=== PATIENT | male | born 2005 | race Caucasian/White ===

== ENCOUNTER → 2023-11-29 11:19 | Outpatient (REF) | payer BC, SELFPAY | LOC: MRI 3T 11:19 | PROVIDERS: ATTENDING PHYSICIAN Orthopaedic Surgery; FAMILY PHYSICIAN Emergency Medicine | DX: M24.812 Other specific joint derangements of left shoulder, not elsewhere classified (principal); M25.312 Other instability, left shoulder | CPT/HCPCS: 73221 ==

== ENCOUNTER 2025-07-08 17:13 | Day surgery (SDC) | payer SELFPAY ==
[2025-07-08] VITALS (13 sets, daily range): BP systolic 108–147; BP diastolic 68–86; BMI 30.7
[2025-07-08 11:47] LABS: Hematocrit 44.8 % (39.0-52.0); Hemoglobin 15.4 g/dL (13.0-18.0); Mean Corp Hgb Conc. 34.4 g/dL (33.0-37.0); Mean Corpuscular Volume 82.4 fL (80.0-94.0); Nucleated Red Blood Cells % 0 % (-); Platelet Count 214 10^3/uL (130-400); Red Cell Dist. Width 12.3 % (11.5-14.5)
--- NOTE | 2025-07-08 11:50 | ED.GENMED ---
History of Present Illness
General
Chief Complaint: Abdominal Pain
Time Seen by Provider: 07/08/25 11:02
History of Present Illness
History of Present Illness:
see MDM
Phy Exam
Physical Exam
Physical Exam:
see MDM
Course
Orders/Labs/Results
Orders:
Orders
07/08/25 11:30
CT Abd/Pel (IV only)-DH only Urgent
Comment:
Reason For Exam: RLQ pain
0.9% Sodium Chloride 1000 ml [Nss] 1,000 ml IV BOLUS
Ketorolac [Toradol] 30 mg IV NOW STA
07/08/25 11:39
Complete Blood Count/With Diff Urgent
Comprehensive Metabolic Panel Urgent
07/08/25 11:54
Urinalysis Reflex To Culture Urgent
Date Specimen was Collected: 07/08/25
Time Specimen was Collected: 11:43
Urine Microscopic Reflex Cult Urgent
07/08/25 14:13
Piperacillin/Tazo 3.375 Gram [Zosyn] 3.375 gram in 50 ml IV NOW
Abnormal Lab Results
07/08/25 07/08/25
11:39 11:54
Absolute Monos (auto) 0.9 H 10^3/uL
(0.1-0.6)
Lymphocytes % 14.7 L %
(20.5-51.1)
Monocytes % 10.6 H %
(1.7-9.3)
Urine RBC 3-6 A /HPF
(0-2)
Urine Bacteria (Reflex) Few A
(Negative)
Urine Albumin (Reflex) 1+ A
(Neg - Trace)
07/08/25 11:39
07/08/25 11:39
Vital Signs
Initial and Last Documented VS:
Initial Vital Signs
Temp Pulse Resp BP Pulse Ox
36.7 C 87 18 147/86 97
07/08/25 10:40 07/08/25 10:40 07/08/25 10:40 07/08/25 10:40 07/08/25 10:40
Last Documented Vital Signs
Temp Pulse Resp BP Pulse Ox
36.7 C 74 15 122/75 97
07/08/25 10:40 07/08/25 13:30 07/08/25 13:30 07/08/25 13:30 07/08/25 13:30
MDM/Problems Addressed
Differential Diagnosis Includes:
see MDM
MDM/Problems Addressed:
Note:
CHIEF COMPLAINT(S)
Abdominal pain.
HISTORY OF PRESENT ILLNESS
The patient is a 20-year-old male presenting with abdominal painx 2 days, which he rates as 4 to 5 on a scale of 0 to 10. He reports the pain feels like gas but persists and does not resolve with typical remedies. The patient denies fever, chills,
changes in bowel movements, or diarrhea. He notes the pain is localized and has not radiated to the testicles or caused burning during urination. The patient lives with family, including a brother with significant medical issues (Prader-Willi
syndrome), who recently experienced a fall and required CPR, contributing to stress at home. The patient is willing to undergo blood work and a computed tomography scan to assess his condition further.
SOCIAL DETERMINANTS AFFECTING HEALTH
The patients brother suffers from Prader-Willi syndrome and recently had an accident that required cardiopulmonary resuscitation, which may contribute stress to the patients home environment.
PHYSICAL EXAM
- Nursing notes reviewed and vital signs reviewed.
\\GENERAL: Alert , mildly anxious
EYE: pupils equal and reactive
NECK: Supple
ENT: o/p clr, mmm.
CARDIAC: Regular rate and rhythm .
LUNGS: Clear breath sounds bilaterally, no acute respiratory distress, no wheezes/rales/rhonchi
ABDOMEN: Soft, focal tenderness in the right lower quadrant no r/g, no cvat, normal bowel sounds
NEUROLOGICAL: Alert and oriented, no focal neuro deficits
SKIN: Warm and dry, skin intact.
MUSCULOSKELETAL: No edema, well perfused. neg abby's sign
PSYCH: Normal and appropriate interaction.
PLAN
- Obtain blood work and a computed tomography scan to evaluate the possibility of appendicitis.
- Administer intravenous fluids and pain medication.
- Advise the patient to remain nil per os (nothing by mouth) until the appendix is further evaluated.
DIFFERENTIAL DIAGNOSIS
The Differential Diagnosis includes, in no particular order and is not limited to:
1. Appendicitis
2. Gastroenteritis
3. Intestinal obstruction
4. Inflammatory bowel disease
5. Irritable bowel syndrome
6. Urinary tract infection
7. Peptic ulcer disease
8. Hernia
9. Testicular torsion
10. Gallstones
20 y/o M
here with RLQ pain x 2 days
no systemic symptoms
tender RLQ
no other signs of appendicits
CT shows appendicolith and borderline enlargement c/w early acute appendicitis
d/w dr. reddy
zosyn, OR
note that pt had traumatic event while waiting to be seen, his older brother with health problems collapsed at home and came in as a code and ultimately
pt is handlign this news ok at the moment.
*Pulse Oximetry
SaO2: 97
Oxygen Mode of Delivery: Room air
Patient hypoxic: no (97)
*Critical Care Note
Total Time (30-74mins, 75-104mins- exclusive of procedures): Not Applicable
ED Attending Note
-
Portions of this chart may have been created with voice recognition software.� Occasional wrong word or��sound alike� substitutions may have occurred due to the inherent limitations of voice recognition software.
Discharge Plan
Departure
Patient Disposition: Admit
Date of Disposition: 07/08/25
Time of Disposition: 14:13
Admit to: OR
Presentation/result/management discussed w/ accepting MD/DO: barry
Condition: Fair
Covid-19: Not Applicable
Discharge Problem:
Acute appendicitis
Prescriptions:
No Action
Trelegy Ellipta 200-62.5-25 mcg Blister With Device
1 inh INHALATION R DAILY
simethicone [Gas-X] 80 mg Tablet,Chewable
80 mg PO BIDPRN PRN (Reason: gas pain)
Entyvio Pen 108 mg/0.68 mL Pen Injector
108 mg SC Q6W
Referrals:
UNKNOWN - PT DOES,NOT KNOW [Family Provider]
Interventions
Interventions:
*Risk Screen - Suicide Last Done: 07/08/25 10:40
*General Assessment Last Done: 07/08/25 11:08
*Neglect/Abuse Screening Last Done: 07/08/25 11:08
*ED COVID-19 Vaccine History Last Done: 07/08/25 11:08
*ED Influenza Vaccine History Last Done: 07/08/25 10:40
[facility] Fall Risk Assessment Tool Last Done: 07/08/25 11:07
IW-Tkhdjt-Kufxusaxah Assessment Last Done: 07/08/25 11:08
Discharge Date and Time
Print Language: PANAMANIAN
[2025-07-08] MEDS: TORADOL 30 MG IV (11:53)
[2025-07-08] MEDS: NSS 1000 IV (11:54)
[2025-07-08 12:00] LABS: Urine Character Clear (Clear)
[2025-07-08 12:09] LABS: Urine Squamous Cell 0-2 /LPF (Few); Urine White Cell 0-2 /HPF (0-5)
[2025-07-08 12:25] LABS: ALT (SGPT) 24 U/L (0-50); AST (SGOT) 29 U/L (17-59); Albumin 4.7 g/dl (3.5-5.0); Alkaline Phosphatase 57 U/L (38-126); Blood Urea Nitrogen 14 mg/dl (9-20); Calcium 9.5 mg/dl (8.4-10.2); Carbon Dioxide 26 mmol/L (22-30); Chloride 101 mmol/L (98-107); Estimated Creatinine Clearance > 125 ml/min; Glucose 98 mg/dl (70-99); Potassium 4.4 mmol/L (3.5-5.1); Sodium 135 mmol/L (135-145); Total Protein 7.8 g/dl (6.3-8.2); eGFR > 60.00
[2025-07-08] MEDS: ZOSYN 50 IV (14:20)
--- NOTE | 2025-07-08 17:24 | W.SUR.PREOP ---
Pre-Operative Surgical Note
-
I have examined this patient prior to the performance of the scheduled procedure.
The patient's condition is unchanged from the time of the current History and
Physical and the patient is able to undergo the scheduled procedure.
--- NOTE | 2025-07-08 17:34 | HPS.HSE ---
Family Physician
-
Family Physician: NOT KNOW UNKNOWN - PT DOES
Chief Complaint
-
Abdominal pain
History of Present Illness
Patient is a 20 yo M with a PMH notable for UC and allergies who presents with 24-48 hours of RLQ abdominal pain. Continues to have some discomfort. No fevers or chills. No nausea or vomiting. No fluctuations in GI function. His last
colonoscopy was years ago, he does not report any polyps or precancerous changes. He is stable on Entyvio.
Medical History
Past Medical History
Past Medical History: Reports Other (Ulcerative colitis)
Past Surgical History: Reports None
Social History
Tobacco: Non-smoker
Alcohol: Occasional
Drug: None
Family History
Family History: Not pertinent
Allergies / Home Medications
Allergies reflects when Allergies were last updated in [facility] ([email or web address]).
Home Medications with original date entered in [facility] ([email or web address])
Allergy/Medication List:
NKDA
Review of Systems
-
A 12 point ROS was completed and negative except as noted: Yes
Physical Exam
Vital Signs
Vital Signs
Temp Pulse Resp BP Pulse Ox
98.1 F 74 15 122/75 97
07/08/25 10:40 07/08/25 13:30 07/08/25 13:30 07/08/25 13:30 07/08/25 13:30
Physical Exam
General: Well Developed, Well Nourished and No Apparent Distress
HEENT: NormoCephalic and Anicteric
Respiratory: Non Labored Respirations
Cardiac: Regular Rhythm
GI: Soft, Non Distended, Tender (RLQ), Ostomy and Other (Nonperitoneal)
Skin: Warm and Dry
Neuro: Nonfocal/grossly intact
Laboratory Results
-
07/08/25 11:39
07/08/25 11:39
Laboratory Results
Total Bilirubin 0.8 mg/dl (0.2-1.3) 07/08/25 11:39
AST 29 U/L (17-59) 07/08/25 11:39
ALT 24 U/L (0-50) 07/08/25 11:39
Alkaline Phosphatase 57 U/L (38-126) 07/08/25 11:39
Data Reviewed
-
CT Scan: Image Personally Visualized and interpreted and Report Reviewed by me
Lab Data: Labs Reviewed by me
Impression/Plan
-
IMPRESSION:
Patient is a 20 yo M p/w acute appendicitis
The natural history and pathophysiology of appendicitis was discussed. Anatomy was reviewed. Options for management including medical management with antibiotics versus surgical management with appendectomy were considered and discussed. The pros
and cons of both approaches was discussed. Specifically, we discussed failure of medical management and future episodes of appendicitis versus surgical risks. He is at increased risk for failure of medical management given the presence of an
appendicolith. Recommend and plan for appendectomy.
Plan for laparoscopic appendectomy. The procedure itself, as well as the risks, benefits, and alternatives was discussed. Specifically, we discussed the risks of bleeding, infection, injury to surrounding structures (bowel), staple line leak, need
for open procedure. Typical postprocedural recovery was discussed. All questions answered. Consent signed.
PLAN:
-- Laparoscopic appendectomy
-- NPO, IVF
-- Abx: Zosyn
--- NOTE | 2025-07-08 19:05 | W.IMMPOSTOP ---
Surgical Immed Post Op Note
-
Primary Surgeon: Indigo
Assisting Surgeon: None
Pre-op Diagnosis: Acute appendicitis
Post-op Diagnosis: Acute appendicitis
Procedure Performed: Laparoscopic
Anesthesia Type: General
Specimen / Cultures:
1. Appendix
Estimated Blood Loss: 3 cc
Complications: None
Operative Findings:
1. Acutely inflamed and dilated appendix, no perforation or contamination, TI close, no evidence of colonic or SB inflamation
2. Mesentery taken with Ligasure, base with romero load stapler, flush with cecum
== END 2025-07-08 19:18 | disposition home or self-care (01) ==
LOC: SDS 17:13
PROVIDERS: Physician Assistant; EMERGENCY PHYSICIAN Emergency Medicine
DX: K35.80 Unspecified acute appendicitis (principal)
CPT/HCPCS: 44970; 74177; 80053; 81003; 81015; 85025; 88304; 96361; 96365; 96375; 99284; Q9967